=== PATIENT | male | born 1985 | race Caucasian/White ===

== ENCOUNTER 2020-07-08 04:00 | Emergency (ER) | payer MEDICAID, SELFPAY ==
[2020-07-08 04:03] VITALS: BP 141/107; PULSE 98; RESP 16; TEMP 36.8; O2SAT 100; BMI 22.7
[2020-07-08 04:14] VITALS: BMI 24.9
[2020-07-08 04:35] LABS: Microscopic, Urine URINE MICROSCOPIC (MICROSCOPIC)
--- NOTE | 2020-07-08 04:35 | HMH.EDSKAF ---
ED Disposition Clinical Impression: Impetigo Disposition: Home, Self-Care Condition on Discharge: Good Instructions: DI for Skin Abscess Additional Instructions: keep area clean and use meds and see pcp for follow up Prescriptions: Sulfamethoxazole/Trimethoprim [Bactrim DS tablet] 1 each PO BID #14 tab Prescription Printed cephALEXin [Keflex 500mg Cap] 500 mg PO TID #30 cap Prescription Printed Referrals: Bandar Pantoja DO [Primary Care Provider] - - Critical Care Critical Care Time: No Attestation: On 07/08/20, the high probability of a clinically significant, sudden or life threatening deterioration of the following system(s) required my full and direct attention, intervention and personal management. The time I documented below is in addition to time spent performing reported procedures but includes the following listed in this critical care notation. Medical Decision Making - Medical Records Medical records reviewed: Yes: I reviewed the patient's medical records. - Ben Inquiry Pt receiving controlled substance: No Vital Signs: 07/08/20 04:03 Temperature 98.3 F Temperature Source Oral Pulse Rate [Left Radial] 98 H Respiratory Rate 16 Blood Pressure [Right Arm] 141/107 H Blood Pressure Mean [Right Arm] 118 Blood Pressure Source [Right Arm] Automatic Cuff Blood Pressure Position [Right Arm] Sitting 02 Sat by Pulse Oximetry 100 Oxygen Delivery Method Room Air - Lab Data Lab results reviewed: Yes: I reviewed the patient's lab results. Lab Results 07/08/20 04:26: Sodium 136, Potassium 3.5, Chloride 100, Carbon Dioxide 29, Anion Gap 10.5, BUN 10, Creatinine 1.00, Estimated Creat Clear 96, Estimated GFR 85, Est GFR ( Amer) 103, Glucose 103 H, Calcium 9.0, Total Bilirubin 0.3, AST 22, ALT 59, Alkaline Phosphatase 113, Total Protein 7.5, Albumin 3.9, Globulin 3.6 H, Albumin/Globulin Ratio 1.1, Salicylates < 1.0 L, Acetaminophen < 10 L 07/08/20 04:26: Lactate 0.9 07/08/20 04:26: Plasma/Serum Alcohol < 10 Result diagrams: 07/08/20 04:26 Orders (Tests/Meds): ED MEDICATIONS Discontinued Medications Generic Name Dose Route Start Last Admin Trade Name Freq PRN Reason Stop Dose Admin Methylprednisolone Sodium Succinate 125 mg 07/08/20 04:45 07/08/20 04:46 Methylprednisolone Sod Succ 125mg Vial IV 07/08/20 04:46 125 mg ONCE ONE Administration ORDERS Category Date Time Status Complete Blood Count Auto Diff Stat Lab 07/08/20 04:14 Received Drug Screen,Urine Stat Lab 07/08/20 04:12 Received Urinalysis and Microscopic Stat Lab 07/08/20 04:12 Received Blood Culture Stat Micro 07/08/20 04:26 Received Skin/Abscess/FB HPI - General Chief complaint: Skin/Abscess/Foreign Body Stated complaint: sores on arms and legs Time Seen by Provider: 07/08/20 04:30 Mode of Arrival: Ambulatory Source of Information: Patient, Medical Record Limitations: No Limitations Description of Symptoms (Recalled from ER Triage Doc. by RN): pt c/o open sores on his trunk and extremities that he has picked over the last 3 weeks. when asked how he got the sores he stated he believes he got it from wearing his new glasses too tight. - History of Present Illness HPI narrative: scattered area on ext over the last few weeks - no mm lesions - no other c/o - has had in past MD complaint: rash Onset (ago): day(s) Tetanus up to date: unsure Location: generalized Severity: moderate Quality: pruritic Consistency: intermittent Context: none Associated symptoms: denies other symptoms Treatments prior to arrival: none - Related Data Previous Rx's Medication Instructions Recorded Sulfamethoxazole/Trimethoprim 1 each PO BID #14 tab 07/08/20 [Bactrim DS tablet] cephALEXin [Keflex 500mg Cap] 500 mg PO TID #30 cap 07/08/20 Allergies Allergy/AdvReac Type Severity Reaction Status Date / Time No Known Allergies Allergy Verified 07/08/20 04:14 [place] History - Hepatitis
[2020-07-08 04:48] LABS: Lactic Acid 0.9 mmol/L (0.7-2.1)
[2020-07-08 04:49] LABS: Alanine Aminotransferase 59 U/L (12-78); Albumin Level 3.9 g/dl (3.5-5.0); Albumin/Globulin Ratio 1.1 (1.1-1.8); Alkaline Phosphatase 113 U/L (38-126); Anion Gap 10.5 mEq/L (5-15); Aspartate Amino Transferase 22 U/L (17-59); Bilirubin,Total 0.3 mg/dl (0.2-1.3); Blood Urea Nitrogen 10 mg/dl (9-20); Carbon Dioxide 29 mmol/L (22.0-30.0); Chloride 100 mmol/L (98-107); Creatinine Clearance Estimated 96 mL/min (50-200); Estimated Glomerular Filt Rate 85 ml/min (>60); Ethyl Alcohol < 10 mg/dl (0-10); GFR (African American) 103 ML/MIN (>60); Globulin 3.6 g/dL (1.3-3.2); Glucose 103 mg/dl (74-100); Potassium 3.5 mmoL/L (3.5-5.1); Sodium 136 mmol/L (136-145); Total Protein,Serum 7.5 g/dl (6.3-8.2)
[2020-07-08 04:50] LABS: Acetaminophen < 10 ug/ml (10-30); Salicylate < 1.0 mg/dL (2.0-20.0)
[2020-07-08 04:57] LABS: Appearance,Urine CLEAR (Clear); Bilirubin,Urine Negative (Negative); Blood, Urine Negative (Negative); Color,Urine YELLOW (Yellow); Glucose,Urine (UA) Negative (Negative); Ketones,Urine Negative (Negative); Leukocyte Esterase,Urine Negative (Negative); Nitrate,Urine Negative (Negative); PH,Urine 5.5 (5.0-8.5); Protein,Urine Negative (Negative); Specific Gravity, Urine >= 1.030 (1.005-1.030); Urobilinogen,Urine 0.2 EU/dl (0.2)
--- NOTE | 2020-07-08 05:05 | PC.NURSE ---
called lab for hematology results. were informed it hadnt been ran yet but was going on right now
[2020-07-08 05:08] LABS: Barbiturates Screen,Urine Negative ng/ml (<200); Benzodiazepines Screen,Urine Positive ng/ml (<200)
[2020-07-08 05:09] LABS: Basophils # 0.1 K/mm3 (0-0.2); Basophils % 0.5 % (0.1-2.0); Eosinophils # 0.8 K/mm3 (0.0-0.4); Eosinophils % 7.8 % (0.1-12.0); Hematocrit 38.4 % (42.0-52.0); Hemoglobin 12.4 g/dL (14.1-18.0); Lymphocytes # 2.2 K/mm3 (0.7-4.5); Lymphocytes % 21.8 % (10-50); Mean Corpuscular HGB Conc 32.2 g/dL (31.8-35.4); Mean Corpuscular Hemoglobin 26.5 pg (27.0-31.2); Mean Corpuscular Volume 82.2 fl (80-94); Monocytes # 0.8 K/mm3 (0.1-1.0); Monocytes % 8.1 % (1.7-9.3); Neutrophils # 6.1 K/mm3 (1.8-7.8); Neutrophils % 61.8 % (37.0-80.0); Platelet Count 397 K/mm3 (142-424); Red Blood Count 4.67 M/mm3 (4.60-6.20); White Blood Count 9.9 K/mm3 (4.8-10.8)
[2020-07-08 05:10] LABS: Cannabinoid Screen,Urine Negative ng/ml (<50); Cocaine Screen,Urine Negative ng/ml (<300)
[2020-07-08 05:11] LABS: Methadone Screen,Urine Negative ng/ml (<300); Opiate Screen,Urine Negative ng/ml (<300)
[2020-07-08 05:12] LABS: Phencyclidine Screen,Urine Negative ng/ml (<25)
[2020-07-08 05:14] VITALS: BP 143/76; PULSE 89; RESP 16; TEMP 36.8; O2SAT 98
[2020-07-08 05:27] LABS: Bacteria,Urine 1+ /lpf; Mucus,Urine 1+ /lpf
[2020-07-13 12:58] LABS: Amphetamine Positive (.); Amphetamines Positive (.); Methamphetamine Positive (.)
[2020-07-14 10:16] LABS: Amphetamine (GC/MS) 3018 ng/mL (Cutoff=500); Methamphetamine (GC/MS) >3000 ng/mL (Cutoff=500)
== END 2020-07-08 05:16 | disposition home or self-care (01) ==
PROVIDERS: Emergency Provider Emergency Medicine; PCP Family Medicine
DX: L01.00 Impetigo, unspecified (principal); F17.210 Nicotine dependence, cigarettes, uncomplicated
CPT/HCPCS: 80053; 80305; 80324; 80329; 81001; 83605; 85025; 87040; 87077; 87186; 99281

== ENCOUNTER 2020-10-10 18:33 | Emergency (ER) | payer MEDICAID, SELFPAY ==
[2020-10-10 18:40] VITALS: BP 166/89; PULSE 112; RESP 15; TEMP 37.1; O2SAT 94; BMI 22.1
--- NOTE | 2020-10-10 18:47 | HMH.EDMCLR ---
ED Disposition Clinical Impression: Medical clearance for incarceration Disposition: Xfer Other Condition on Discharge: Good Referrals: PCP,No [Primary Care Provider] - - Critical Care Critical Care Time: No Attestation: On 10/10/20, the high probability of a clinically significant, sudden or life threatening deterioration of the following system(s) required my full and direct attention, intervention and personal management. The time I documented below is in addition to time spent performing reported procedures but includes the following listed in this critical care notation. Medical Decision Making - Medical Records Medical records reviewed: Yes: I reviewed the patient's medical records. - Ben Inquiry Pt receiving controlled substance: No Vital Signs: 10/10/20 18:40 Temperature 98.8 F Temperature Source Oral Pulse Rate [Right Brachial] 112 H Respiratory Rate 15 Blood Pressure [Right Arm] 166/89 H Blood Pressure Mean [Right Arm] 114 02 Sat by Pulse Oximetry 94 L Oxygen Delivery Method Room Air Orders (Tests/Meds): ED MEDICATIONS Discontinued Medications Generic Name Dose Route Start Last Admin Trade Name Freq PRN Reason Stop Dose Admin Acetaminophen 500 mg 10/10/20 18:40 Acetaminophen 500mg Tab PO 10/10/20 18:41 ONCE ONE Medical Decision Narrative: 35-year-old male presents for medical clearance. He is in no acute distress nontoxic-appearing comfortable in the bed. He is mildly tachycardic but otherwise his vital signs are normal. I am not worried that he is acutely intoxicated or does not have capacity make decisions. There is no evidence of neck swelling or trauma. It appears to be musculoskeletal related pain no history of IV drug injection on that side. Tylenol given for pain. For the sores recommended to follow-up as well. Plan to discharge to incarceration Medical Clearance HPI - General Chief complaint: Medical Clearance Stated complaint: medical clearance Time Seen by Provider: 10/10/20 18:45 Mode of Arrival: Ambulatory Description of Symptoms (Recalled from ER Triage Doc. by RN): Pt brought in for medical clearance. Jesus Alberto SHERWOOD reports that [facility], but patient has been arrested for an outstanding warrant and needs clearance for incarceration. Pt denies drug use, but does have a hx. Pt has visible sores on his arms, reports ezcema . - History of Present Illness HPI Narrative: 35-year-old male presents for medical clearance. He was outside of [facility] per report and had a warrant out when the police arrived and they brought him in for medical clearance. He is not having any complaints other than right-sided neck pain that has been going on for 3 days when he turns his head. Denies fever chills nausea vomiting chest pain swelling to the neck neck trauma. He has no abdominal pain. He also has eczema related sores he says however no secondary infections MD complaint: medical clearance requested Reason for Medical Clearance: medical condition Alleged Intoxication: No Home medications: Previous Rx's Medication Instructions Recorded Sulfamethoxazole/Trimethoprim 1 each PO BID #14 tab 07/08/20 [Bactrim DS tablet] cephALEXin [Keflex 500mg Cap] 500 mg PO TID #30 cap 07/08/20 Allergies/Adverse reactions: Allergies Allergy/AdvReac Type Severity Reaction Status Date / Time No Known Allergies Allergy Verified 07/08/20 04:14 [facility] History - Hepatitis A Screen Drug use history?: Yes High risk sexual behaviors?: No History of sexually transmitted infection?: No Currently employed?: No Childcare worker?: No Do you have indoor plumbing?: Yes Do you have electricity?: Yes Attestation statement:: This patient has been screened for Hepatitis A risk factors. - Social History Smoking Status: Current every day smoker # Packs/Day (cigarettes): 1 Alcohol Intake: never Substance Use Type: methamphetamine [place]
[2020-10-10 18:55] VITALS: BP 164/88; PULSE 98; RESP 19; TEMP 36.9; O2SAT 98
== END 2020-10-10 18:56 ==
PROVIDERS: Emergency Provider Emergency Medicine
DX: M54.2 Cervicalgia (principal); F19.10 Other psychoactive substance abuse, uncomplicated; F17.210 Nicotine dependence, cigarettes, uncomplicated
CPT/HCPCS: 99282

== ENCOUNTER 2021-04-25 17:26 | Emergency (ER) | payer MEDICAID, SELFPAY ==
[2021-04-25 18:00] VITALS: BP 0/0; PULSE 0; RESP 0; TEMP -17.7; TEMP 0; O2SAT 0
== END 2021-04-25 18:01 | disposition left against medical advice (07) ==
PROVIDERS: Emergency Provider Nurse Practitioner Family
DX: Z53.21 Procedure and treatment not carried out due to patient leaving prior to being seen by health care provider (principal)